=== PATIENT | female | born 1955 | race Caucasian/White ===

== ENCOUNTER 2016-07-23 10:53 | Outpatient (CLI) | payer BC ==
[2016-07-23 11:19] LABS: Bilirubin Negative (Negative); Blood, Urine Negative (Negative); Clarity Clear (Clear); Glucose, Urine (Dipstick) Negative (Negative); Leukocyte Negative (Negative); Nitrite Negative (Negative); Protein, Urine (Dipstick) Negative (Neg-Trace); Specific Gravity, Urine 1.015 (1.005-1.030); Urobilinogen 0.2 mg/dL (0.2-1.0)
[2016-07-23 11:26] LABS: Hemoglobin 14.5 g/dL (12.0-16.0); Mean Corpuscular HGB CONC 33.5 g/dL (32.0-36.0); Mean Corpuscular Hemoglobin 28.8 pg (27.0-31.0); Mean Corpuscular Volume 86.1 fl (81.0-99.0); Mean Platelet Volume 7.7 fL (7.4-10.4); Platelet Count 189 thou/uL (130-400); Red Blood Cell (RBC) Count 5.03 mill/uL (4.20-5.40); White Blood Cell (WBC) Count 4.1 thou/uL (4.8-10.8)
[2016-07-23 11:49] LABS: ALT (SGPT) 16 U/L (8-55); AST (SGOT) 16 U/L (5-34); Albumin 4.3 g/dL (3.5-5.0); Alkaline Phosphatase 70 U/L (40-150); Anion Gap 14 mmol/L (10-20); BUN (Urea Nitrogen) 16 mg/dL (9.8-20.1); Bilirubin, Total 0.6 mg/dL (0.2-1.2); Calc. Creatinine Clearance 0 mL/min (70-130); Calcium 9.5 mg/dL (7.8-10.44); Carbon Dioxide 27 mmol/L (22-29); Cardiac Risk 3.7 (Less than 4.5); Chloride 108 mmol/L (98-107); Cholesterol 224 mg/dl (< 200 Desired); Estimated GFR-MDRD 72; Globulin 2.5 g/dL (2.4-3.5); Glucose 95 mg/dL (70-105); HDL Cholesterol 61 mg/dL (>60 Neg Risk); LDL Cholesterol, Calculated 133 mg/dL; Potassium 3.8 mmol/L (3.5-5.1); Protein, Total 6.8 g/dL (6.0-8.3); Sodium 145 mmol/L (136-145); Triglycerides 152 mg/dL (Less than 150)
[2016-07-23 12:08] LABS: Thyroid Stimulating Hormone 1.6421 uIU/mL (0.35-4.94); Vitamin D, 25 Hydroxy 66.8 ng/ml (> 30.0)
== END 2016-07-23 10:54 | disposition home or self-care (01) ==
LOC: BURLAB 10:53
PROVIDERS: ATTEND Family Medicine
DX: Z00.00 Encounter for general adult medical examination without abnormal findings (principal)
CPT/HCPCS: 36415; 80053; 80061; 81003; 82306; 84436; 84443; 84479; 85027

== ENCOUNTER 2020-06-18 03:38 | Emergency (ER) | payer BC ==
[2020-06-18] MEDS ORDERED: Glycopyrrolate 0.4 MG/ 2 ML VIAL ONE (03:56)
[2020-06-18] MEDS ORDERED: Ondansetron PF 4 MG/2 ML Vial ONE (03:56)
[2020-06-18] MEDS ORDERED: Famotidine In NaCl 20 mg/50 ml Premix Bag ONE (03:56)
[2020-06-18] MEDS ORDERED: Loperamide HCl 2 MG CAP PO SCH (04:45)
[2020-06-18 04:49] LABS: #Eosinphils 0.1 thou/uL (0.0-0.7); #Lymphocytes 0.7 thou/uL (1.20-3.40); #Monocytes 0.7 thou/uL (0.11-0.59); #Neutrophils 10.2 thou/uL (1.40-6.50); %Basophils 0.4 % (0.0-1.0); %Lymphocytes 5.9 % (21.0-51.0); %Monocytes 5.8 % (0.0-10.0); %Neutrophils 86.9 % (42.0-75.0); ALT (SGPT) 11 U/L (8-55); AST (SGOT) 11 U/L (5-34); Albumin 3.7 g/dL (3.4-4.8); Alkaline Phosphatase 62 U/L (40-110); Anion Gap 11 mmol/L (10-20); BUN (Urea Nitrogen) 22 mg/dL (9.8-20.1); Bilirubin, Total 0.5 mg/dL (0.2-1.2); Calc. Creatinine Clearance 0 mL/min (70-130); Calcium 7.9 mg/dL (7.8-10.44); Carbon Dioxide 26 mmol/L (23-31); Chloride 111 mmol/L (98-107); Globulin 4.8 g/dL (2.4-3.5); Glucose 144 mg/dL (80-115); Hemoglobin 13.8 g/dL (12.0-16.0); Lipase 61 U/L (8-78); Mean Corpuscular HGB CONC 32.7 g/dL (32.0-36.0); Mean Corpuscular Hemoglobin 28.9 pg (27.0-31.0); Mean Corpuscular Volume 88.3 fL (78.0-98.0); Mean Platelet Volume 8.3 fL (7.4-10.4); Platelet Count 156 thou/uL (130-400); Potassium 3.7 mmol/L (3.5-5.1); Protein, Total 8.5 g/dL (5.8-8.1); RBC Distribution Width 11.9 % (11.5-14.5); Red Blood Cell (RBC) Count 4.77 mill/uL (4.20-5.40); Sodium 144 mmol/L (136-145); White Blood Cell (WBC) Count 11.8 thou/uL (4.8-10.8)
[2020-06-18 06:12] LABS: Clarity Clear (Clear); Leukocyte Trace (Negative); Nitrite Negative (Negative); Protein, Urine (Dipstick) Negative (Neg-Trace)
[2020-06-18 06:13] LABS: Bilirubin Negative (Negative); Blood, Urine Trace (Negative); Glucose, Urine (Dipstick) Negative (Negative); Ketone, Urine Negative (Negative); Urobilinogen 0.2 mg/dL (Less than 2)
[2020-06-18 06:14] LABS: Bacteria/HPF 1+ HPF (None Seen); RBC/HPF 0-3 HPF (0-3); Squamous Epithelial 0-3 HPF (0-3); WBC/HPF 0-3 HPF (0-3)
== END 2020-06-18 05:46 | disposition home or self-care (01) ==
LOC: BURERS 03:38
DX: E86.9 Volume depletion, unspecified (principal); R11.2 Nausea with vomiting, unspecified; R19.7 Diarrhea, unspecified; I10 Essential (primary) hypertension
CPT/HCPCS: 36415; 80053; 81003; 81015; 82274; 83690; 84484; 85025; 94760; 96365; 96375; J2405

== ENCOUNTER 2023-12-13 09:07 | Emergency (ER) | payer MEDICARE ==
[2023-12-13] MEDS ORDERED: Mag-Al 1200 mg/1200 mg/30 ML UDCUP ONE (09:47)
[2023-12-13] MEDS ORDERED: Lidocaine Viscous Sol 2% 15 ml UD Cup ONE (09:47)
[2023-12-13 10:12] LABS: #Lymphocytes 0.6 thou/uL (1.20-3.40); #Monocytes 0.2 thou/uL (0.11-0.59); #Neutrophils 7.5 thou/uL (1.40-6.50); %Basophils 0.4 % (0.0-1.0); %Lymphocytes 7.3 % (21.0-51.0); %Monocytes 1.8 % (0.0-10.0); %Neutrophils 90.5 % (42.0-75.0); Hematocrit 42.3 % (36.0-47.0); Hemoglobin 13.3 g/dL (12.0-16.0); Mean Corpuscular HGB CONC 31.4 g/dL (32.0-36.0); Mean Corpuscular Hemoglobin 27.5 pg (27.0-31.0); Mean Corpuscular Volume 87.8 fl (78.0-98.0); Platelet Count 186 10x3/uL (130-400); RBC Distribution Width 11.4 % (11.5-14.5); Red Blood Cell (RBC) Count 4.82 mill/uL (4.20-5.40); White Blood Cell (WBC) Count 8.2 10x3/uL (4.8-10.8)
[2023-12-13 10:29] LABS: ALT (SGPT) 12 U/L (8-55); AST (SGOT) 17 U/L (5-34); Albumin 3.9 g/dL (3.4-4.8); Alkaline Phosphatase 73 U/L (40-110); Anion Gap 15 mmol/L (10-20); BUN (Urea Nitrogen) 15 mg/dL (9.8-20.1); Bilirubin, Total 0.4 mg/dL (0.2-1.2); Calc. Creatinine Clearance 0 mL/min (70-130); Calcium 9.6 mg/dL (7.8-10.44); Carbon Dioxide 24 mmol/L (23-31); Chloride 106 mmol/L (98-107); Estimated GFR 83; Globulin 3.1 g/dL (2.4-3.5); Glucose 139 mg/dL (80-115); Lipase 81 U/L (8-78); Potassium 3.5 mmol/L (3.5-5.1); Sodium 141 mmol/L (136-145)
[2023-12-13 10:32] LABS: Troponin I Less than 0.010 ng/mL (< 0.028)
== END 2023-12-13 11:00 | disposition home or self-care (01) ==
LOC: BURERS 09:07
DX: K29.00 Acute gastritis without bleeding (principal); I10 Essential (primary) hypertension; Z79.899 Other long term (current) drug therapy
CPT/HCPCS: 36415; 80053; 83690; 84484; 85025; 93005; 99284

== ENCOUNTER 2025-01-08 11:13 | Outpatient (CLI) | payer OTHER ==
[2025-01-08 12:28] LABS: ALT (SGPT) 13 U/L (Less than 34); AST (SGOT) 20 U/L (11-34); Albumin 4.0 g/dL (3.1-4.5); Alkaline Phosphatase 78 U/L (40-110); Anion Gap 16 mmol/L (10-20); BUN (Urea Nitrogen) 20 mg/dL (9.8-20.1); Bilirubin, Direct 0.2 mg/dL (0.1-0.3); Bilirubin, Total 0.6 mg/dL (0.3-1.2); Calc. Creatinine Clearance 0 mL/min (70-130); Calcium 8.8 mg/dL (7.8-10.44); Carbon Dioxide 23 mmol/L (23-31); Cardiac Risk 3.0 (Less than 4.5); Chloride 106 mmol/L (98-107); Cholesterol 231 mg/dl (< 200 Desired); Globulin 2.7 g/dL (2.4-3.5); Glucose 100 mg/dL (80-115); HDL Cholesterol 77 mg/dL (>60 Neg Risk); LDL Cholesterol, Calculated 139 mg/dL; Potassium 4.1 mmol/L (3.5-5.1); Sodium 141 mmol/L (136-145); Triglycerides 74 mg/dL (Less than 150)
== END 2025-01-08 11:14 | disposition home or self-care (01) ==
LOC: BURLAB 11:13
PROVIDERS: ATTEND Internal Medicine Cardiovascular Disease
DX: I10 Essential (primary) hypertension (principal); E78.5 Hyperlipidemia, unspecified; R79.89 Other specified abnormal findings of blood chemistry; K86.2 Cyst of pancreas; K76.0 Fatty (change of) liver, not elsewhere classified; R10.13 Epigastric pain; Z86.0100 Personal history of colon polyps, unspecified
CPT/HCPCS: 36415; 80053; 80061; 82248; 82728